=== PATIENT | female | born 1975 | race Caucasian/White ===

== ENCOUNTER → 2022-06-09 | Outpatient (CLI) | payer MEDICAID, SELFPAY ==
--- NOTE | 2022-06-09 16:41 | NEURO_ITS ---
NCS and/or EMG Patient Report Ordering Doctor: Vijay Arizmendi DATE OF SERVICE: 06/09/22 Indication: Right hand numbness and wrist pain. Symptoms are provoked during sleep. No associated axial or radicular neck pain. Evaluate for entrapment neuropathy. Findings: Nerve conduction studies were performed in the right upper extremity. The right median motor study recording the abductor pollicis brevis showed a normal amplitude, prolonged distal latency and slowed conduction velocity. The right ulnar motor study recording the abductor digiti minimi showed a normal amplitude, normal distal latency and normal conduction velocity. No conduction block or focal slowing was present across the elbow. The right median sensory response recording digit two showed a borderline amplitude, prolonged latency and slowed conduction velocity. The right ulnar sensory response recording digit five showed a normal amplitude, latency and conduction velocity. The right radial sensory response recording over the extensor snuff box showed a normal amplitude, latency and conduction velocity. Needle EMG of the right upper extremity muscles was performed. No denervation was seen in any muscle. Motor units in the abductor pollicis brevis were large amplitude and long duration with normal recruitment. All other motor unit morphology, activation and recruitment patterns were normal. Impression: This is an abnormal study. There is electrophysiologic evidence of median neuropathy across the right wrist. The pathophysiology is predominantly demyelination. These findings are compatible with the clinical diagnosis of carpal tunnel syndrome. In addition, there is no electrophysiologic evidence of superimposed cervical radiculopathy in the right upper extremity. Jonah Santos D.O. Multi Select Codes Neurology Neurology Interp Codes: 98170-57 Musc test done w/n test comp (interp) and 43106-43 [facility] cndj tst 5-6 studies (interp)
== END | disposition home or self-care (01) ==
LOC: PSN 16:06
PROVIDERS: PCP Family Medicine; Referring Provider Physician Assistant Surgical; Visit Provider Physician Assistant Surgical
DX: G56.01 Carpal tunnel syndrome, right upper limb (principal)
CPT/HCPCS: 95886; 95909

== ENCOUNTER 2022-09-04 05:43 | Day surgery (SDC) | payer MEDICAID, SELFPAY ==
[2022-09-04 06:25] LABS: Internal QC Validated? YES +Cl - CLEAR BKGD; Pregnancy, Urine Negative Negative
[2022-09-04 06:28] VITALS: BP 148/90; PULSE 63; RESP 16; TEMP 37.1; O2SAT 100; BMI 30.9
[2022-09-04] MEDS: Lactated Ringers 1,000 ML 15 ML IV (06:33)
--- NOTE | 2022-09-04 07:14 | PCM.OPRPT ---
Report of Operation Date of Procedure: 09/04/22 Pre-Operative Diagnosis: Right carpal tunnel syndrome Post-Operative Diagnosis: Right carpal tunnel syndrome Surgery/Procedure Performed:: Right carpal tunnel release, decompression of median nerve Description of Surgical Findings:: The patient is a 47-year-old female with intractable pain and paresthesias in the right hand. She failed nonoperative treatment including bracing and injections. EMG was positive for median nerve entrapment at the wrist. Surgical intervention was then opted for in which the benefits, risks and complications of surgical intervention were discussed. All questions were answered. Informed consent was obtained. Preoperative antibiotics were administered. The patient was taken to the operative suite and the appropriate amount of sedation was given by anesthesia. After adequate anesthesia was obtained a timeout was performed. The right upper extremity was prepped and draped in a sterile manner. A tourniquet was applied. 1% lidocaine was injected locally. A curvilinear incision was made over the right volar palmar wrist following a crease from the proximal palmar crease to Rhodes's cardinal line. Blunt dissection was taken through the palmar fascia. The palmar fascia was split in line with the skin incision. Blunt dissection was taken through the subpalmar fat layer to the transverse carpal ligament which was identified. The transverse carpal ligament was then split and incised with a scalpel in line with the skin incision, followed by blunt dissection. Care was taken to identify and make sure there was no signs of aberrant motor branch of the median nerve. The flexor retinaculum was released proximal and distal. There was no compression above the wrist compartment. After copious irrigation the median nerve was identified and found to be adequately decompressed. Closure was then performed with 3-0 nylon sutures in a mattress manner. The wounds were cleansed. A sterile dressing was applied with Xeroform 4 x 4's interdigital fluffs web roll and Alphonso wrap. The tourniquet was deflated. The patient was then transferred to the PACU in stable condition. No complications were noted. Gross neurovascular status was intact without any paresthesias. Pulses were intact. Good range of motion of the digits. Surgeon: Shaggy Mccormick Type of Anesthesia: Local and MAC Estimated Blood Loss (mL): 1 cc Complications None
--- NOTE | 2022-09-04 07:14 | PCM.PN.ORT ---
Subjective Subjective The patient was seen and examined postoperatively in the PACU. She was resting comfortably. Pain was controlled. No complaints. Objective Data Objective Data Vital Signs: Vital Signs Temp Pulse Resp BP Pulse Ox O2 Del Method 98.7 F 63 16 148/90 H 100 Room Air 09/04/22 06:28 09/04/22 06:28 09/04/22 06:28 09/04/22 06:28 09/04/22 06:28 09/04/22 06:28 Oxygen Delivery Method Room Air Weight: 191 lb 12.835 oz Body Mass Index (BMI) 30.9 Lab / Micro Data Labs: Laboratory Results - last 24 hr 09/04/22 06:15: Urine Test Negative Physical Exam Const alert, oriented x3 and no apparent distress Constitutional Narrative: `Dressing clean dry and intact to right hand General Appearance: cooperative, comfortable and well kempt HEENT normocephalic and head/scalp atraumatic Eyes EOMs intact bilaterally and conjunctivae normal Neck full ROM General: normal visual inspection Chest inspection of chest normal and palpation of chest normal Resp normal respiratory effort and normal air movement Effort and Inspection: able to speak in complete sentences Cardio regular rate, regular rhythm and peripheral pulses 2+ throughout GI soft to palpation, non-tender and non-distended Back/Spine Cervical Spine: cervical ROM normal Thoracic Spine / Upper Back: normal to inspection Lumbar Spine / Lower Back: normal to inspection Extremity normal to inspection, full ROM, normal capillary refill, no clubbing, cyanosis or edema and no calf tenderness Skin no rashes or lesions noted General Skin Exam: no breakdown Neuro oriented x3, CN's II-XII intact bilaterally, moves all extremities, no focal motor deficits and no sensory deficits noted Motor Exam: strength 5/5 throughout and muscle tone normal throughout Assessment & Plan Assessment/Plan (1) Carpal tunnel syndrome: PLAN: Plan Okay to discharge home See discharge instructions Follow-up with Dr. Mccormick in 3 weeks for suture removal
[2022-09-04] MEDS: Cefazolin 2 GM in 0.9% Normal Saline 100 ML IV (07:30)
[2022-09-04] MEDS: Lidocaine 1% (30 ml sdv) 30 ML Vial (07:44)
[2022-09-04 08:05] VITALS: BP 135/75; BP 148/90; PULSE 69; RESP 16; TEMP 36.4; O2SAT 99
[2022-09-04 08:09] VITALS: BP 135/73; BP 148/90; PULSE 67; RESP 16; O2SAT 99
[2022-09-04 08:15] VITALS: BP 141/67; BP 148/90; PULSE 64; RESP 16; O2SAT 99
[2022-09-04 08:19] VITALS: BP 145/86; BP 148/90; PULSE 63; RESP 16; TEMP 36.6; O2SAT 98
[2022-09-04 08:56] VITALS: BP 141/54; BP 148/90; PULSE 62; RESP 16; TEMP 36.7; O2SAT 100
== END 2022-09-04 09:13 | disposition home or self-care (01) ==
LOC: SDC 05:43 → AC 05:45
PROVIDERS: Anesthesiology; PCP Family Medicine; Referring Provider Orthopaedic Surgery; Visit Provider Orthopaedic Surgery
PROC: (CPT 64721; principal; 2022-09-04 07:15)
DX: G56.01 Carpal tunnel syndrome, right upper limb (principal); E66.9 Obesity, unspecified; Z68.31 Body mass index [BMI] 31.0-31.9, adult
CPT/HCPCS: 64721; 01810; 81025; J7120; J2405